=== PATIENT | female | born 1980 | race Hispanic/Latino ===

== ENCOUNTER 2022-10-18 14:47 | Outpatient (CLI) | payer OTHER ==
[~2022-10-18 14:47] MED LIST: Magnevist 469MG/ML 20 ML VIAL ONE
== END 2022-10-18 14:48 | disposition home or self-care (01) ==
LOC: CSHMRI 14:47
PROVIDERS: ATTEND Radiology Radiation Oncology
DX: C79.31 Secondary malignant neoplasm of brain (principal); C50.919 Malignant neoplasm of unspecified site of unspecified female breast; Z92.3 Personal history of irradiation; Z98.890 Other specified postprocedural states; G93.6 Cerebral edema
CPT/HCPCS: 70553